=== PATIENT | female | born 1985 | race Caucasian/White ===

== ENCOUNTER 2023-08-09 14:08 | Emergency (ER) | payer BC ==
[~2023-08-09] VITALS: Ht 162.6 cm; Wt 56.2 kg
[2023-08-09] MEDS ORDERED: ONDANSETRON 4 MG/2 ML VIAL IV ONE (15:00)
[2023-08-09] MEDS ORDERED: IV NS 1000 ML 1,000 ML IV ONE (15:00)
[2023-08-09] MEDS ORDERED: OXYCODONE/APAP 5-325 MG TABLET PO ONE (15:00)
[2023-08-09] MEDS ORDERED: ONDANSETRON 4 MG/2 ML VIAL ONE (15:03)
[2023-08-09] MEDS ORDERED: OXYCODONE/APAP 5-325 MG TABLET ONE (15:04)
[2023-08-09] MEDS ORDERED: PROCHLORPERAZINE MALEATE 5 MG TABLET PO ONE (16:45)
[2023-08-09] MEDS ORDERED: PROCHLORPERAZINE MALEATE 5 MG TABLET ONE ×2 (16:51→16:53)
[2023-08-09] MEDS ORDERED: HYDR-3980 PO (16:53)
[2023-08-09] MEDS ORDERED: PROC10TA29 PO (16:53)
[2023-08-09] MEDS ORDERED: PROCHLORPERAZINE EDISYLATE 10 MG/2 ML VIAL ONE (16:57)
[2023-08-09] MEDS ORDERED: PROCHLORPERAZINE EDISYLATE 10 MG/2 ML VIAL IV ONE (17:00)
[2023-08-09 17:13] VITALS: BP 121/71; TEMP 98.2; O2SAT 98
== END 2023-08-09 17:14 | disposition home or self-care (01) ==
LOC: ER 14:08
DX: J10.1 Influenza due to other identified influenza virus with other respiratory manifestations (principal); Z79.899 Other long term (current) drug therapy
CPT/HCPCS: A4606; A4663; J0780; J2405; J7040; J8499